=== PATIENT | female | born 1975 ===

== ENCOUNTER → 2022-07-25 | Outpatient (CLI) | payer OTHER ==
[2022-07-25 15:26] LABS: Basophils # (A) 0.06 X 10*3/uL (0.00-0.10); Basophils % (A) 1.2 %; Eosinophils # (A) 0.03 X 10*3/uL (0.04-0.35); Eosinophils % (A) 0.6 %; HCT 34.3 % (37.2-46.3); HGB 10.4 g/dL (12.0-15.0); Immature Grans, Automated 0.2 %; Lymphocytes # (A) 1.66 X 10*3/uL (0.90-5.00); Lymphocytes % (A) 33.4 %; MCH 26.4 pg (27.0-32.0); MCHC 30.3 g/dL (32.0-37.0); MCV 87.1 fL (80.0-97.0); Mean Platelet Volume 10.2 fL (9.5-12.2); Monocytes # (A) 0.48 X 10*3/uL (0.20-1.00); Monocytes % (A) 9.7 %; NRBC Per 100 WBC 0 /100 WBCS (0.0-0.0); Neutrophils # (A) 2.73 X 10*3/uL (1.80-7.70); Neutrophils % (A) 54.9 %; Platelet Count 173 X 10*3/uL (140-440); RBC 3.94 X 10*6/uL (4.10-5.20); RDW 19.3 % (11.5-14.5); WBC 4.97 X 10*3/uL (4.50-10.00)
[2022-07-25 15:50] LABS: Hepatitis B Surface Antigen Nonreactive (Nonreactive); Hepatitis C IgG Antibody Nonreactive (Nonreactive)
[2022-07-25 15:51] LABS: Ceruloplasmin 30.5 mg/dL (20.0-60.0)
[2022-07-25 16:00] LABS: % Iron Saturation 2.68 (12.00-45.00); African American GFR (CKD) 135.5 (60.0-200.0); Albumin 4.5 g/dL (3.8-4.9); Albumin/Globulin Ratio 1.32 (1.60-3.17); Anion Gap 16.8 mmol/L (10.00-18.00); Calcium 9.6 mg/dL (8.7-10.3); Carbon Dioxide 24.2 mmol/L (20.0-27.5); Ferritin 33.4 ng/mL (10.0-291.0); Globulin 3.4 g/dL (1.6-3.3); Non-African American GFR(CKD) 116.9 (60.0-200.0); Potassium 3.6 mmol/L (3.5-5.5); Total Bilirubin 0.6 mg/dL (0.30-1.20); Total Protein 7.9 g/dL (6.2-8.2)
== END | disposition home or self-care (01) ==
LOC: LABWHC1 08:27
PROVIDERS: ATTEND Internal Medicine Gastroenterology
DX: R74.01 Elevation of levels of liver transaminase levels (principal)
CPT/HCPCS: 36415; 80053; 82103; 82390; 82728; 83540; 83550; 85025; 86038; 86803; 87340

== ENCOUNTER → 2022-09-05 | Outpatient (CLI) | payer OTHER ==
--- NOTE | 2022-09-05 09:35 | US ---
EXAMINATION TYPE: US abdomen complete DATE OF EXAM: 09/05/2022 COMPARISON: NONE CLINICAL INDICATION: Female, 47 years old with history of R74.01ELEVATION OF LEVELS OF LIVER TRANSAMI NASE LE; liver disease TECHNIQUE: Multiple sonographic images of the abdomen are obtained. 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 Left Kidney: No hydronephrosis or masses seen Upper IVC: wnl Abd Aorta: wnl The liver is homogenous. The intrahepatic portion of the IVC and proximal abdominal aorta are within normal limits. There is no evidence of cholelithiasis. Common bile duct is unremarkable. The visu alized portions of the pancreas are homogenous. The spleen is unremarkable. Kidneys are symmetric a nd free of hydronephrosis. No solid renal lesions are seen. IMPRESSION: Simple cyst right kidney.
== END | disposition home or self-care (01) ==
LOC: RADUSWWP 07:44
PROVIDERS: ATTEND Internal Medicine Gastroenterology
DX: N28.1 Cyst of kidney, acquired (principal); R74.01 Elevation of levels of liver transaminase levels
CPT/HCPCS: 76700

== ENCOUNTER → 2023-06-22 | Outpatient (CLI) | payer OTHER ==
--- NOTE | 2023-06-22 12:04 | MR ---
EXAMINATION TYPE: MR brain wo con DATE OF EXAM: 06/22/2023 9:37 AM CLINICAL INDICATION:Female, 47 years old with history of G40.909 EPILEPSY, UNSP, NOT INTRACTABLE, WIT HOUT S; PHH, Seizure COMPARISON: None. TECHNIQUE: Multi planar, multi sequence imaging was performed through the brain including: T1, T2, In version recovery, Diffusion weighted imaging, and gradient echo imaging. No gadolinium was given. FINDINGS: Mild cerebral atrophy with proportional dilation of ventricular system. Midline structures show no ab normality. Diffusion-weighted imaging shows no evidence of restricted diffusion. The susceptibility w eighted images do not reveal any evidence for micro-hemorrhage. The mesial temporal lobes are symmetr ic. The bone marrow signal is within normal limits. Paranasal sinuses and mastoid air cells: Trace high T2 signal in the left mastoid air cells compatibl e with small mastoid air cell effusion. Visualized orbits: Orbital contents are intact. IMPRESSION: No evidence of intracranial mass or acute/subacute infarct.
== END | disposition home or self-care (01) ==
LOC: RADMRIMAIN 08:35
PROVIDERS: ATTEND Psychiatry & Neurology Neurology
DX: G40.909 Epilepsy, unspecified, not intractable, without status epilepticus (principal)
CPT/HCPCS: 70551